=== PATIENT | female | born 1990 | race American Indian/Alaskan Native ===

== ENCOUNTER 2017-06-27 03:14 | Outpatient (CLI) | payer MEDICAID ==
[2017-06-27 03:41] VITALS: BP 117/68
[2017-06-27 04:12] LABS: Bacteria,Urine 1+ /HPF (Negative); Bilirubin,Urine NEG (Negative); Blood,Urine NEG (Negative); Ketones,Urine NEG (Negative); Leukocyte Esterase,Urine MOD (Negative); Mucus,Urine FEW /HPF; Nitrite,Urine NEG (Negative); Protein,Urine <15 mg/dL mg/dL (Negative); Urobilinogen,Urine < 2.0 mg/dL (<2.0)
[2017-06-27] MEDS ORDERED: LACTATED RINGERS 0 ML ONE (06:40)
[2017-06-27] MEDS ORDERED: LACTATED RINGERS 1,000 ML IV SCH (07:00)
== END 2017-06-27 06:50 | disposition home or self-care (01) ==
LOC: TRG 03:14
PROVIDERS: ATTEND Obstetrics & Gynecology
DX: Z34.93 Encounter for supervision of normal pregnancy, unspecified, third trimester (principal); Z3A.37 37 weeks gestation of pregnancy
CPT/HCPCS: 59025; 81001; J7120

== ENCOUNTER 2017-07-02 21:05 | Outpatient (CLI) | payer MEDICAID ==
[2017-07-02 21:32] VITALS: BP 111/74
--- NOTE | 2017-07-08 19:28 | Event Note ---
Date: 07/02/17 Pt. presented to L&D triage with complaint of contractions and vaginal discharge. She states she wants to make sure it is not her water. Pt. reports discharge is thick like mucous. She denies bleeding. She denies watery discharge. Pt. reports active movement. She reports irregular contractions on and off all day. On exam, pt. is well appearing. FHR tracing is reassuring. Irregular mild contractions noted. Negative pooling, negative nitrazine. Cervix thick, posterior, 2 cm. Unchanged cervical exam after several hours. Pt. was discharged home with labor precautions. Warning signs of late reviewed with pt.
== END 2017-07-02 22:28 | disposition home or self-care (01) ==
LOC: TRG 21:05
PROVIDERS: ATTEND Obstetrics & Gynecology
DX: O47.1 False labor at or after 37 completed weeks of gestation (principal); Z3A.38 38 weeks gestation of pregnancy

== ENCOUNTER 2017-07-09 23:24 | Outpatient (CLI) | payer MEDICAID ==
[2017-07-09 23:43] VITALS: BP 104/73
--- NOTE | 2017-07-10 21:44 | Progress Note ---
Assessment and Plan A: at 39 weeks gestation. False labor. P: Discharge home. Labor precautions discussed with patient. Late warning signs discussed. Subjective - Subjective Date of service: 07/09/17 Principal diagnosis: at 39 weeks gestation; false labor Interval history: Patient presents at 39 weeks gestation complaining of intermittent contractions all day. Patient reports: movement normal, contractions, no vaginal bleeding Objective - Vital Signs Vital Signs: Normal - Exam Abdomen: Present: normal appearance, soft. Absent: distention, tenderness, guarding Uterus: Present: fundal height above umbilicus FHR: category 1 Uterine Contraction Monitor Mode: External Cervical Dilatation: 2 Cervical Effacement Percentage: 50 station: -2 Uterine Contraction Frequency (min): Irregular - Labs Labs: Fern test negative, nitrazine negative
== END 2017-07-10 00:25 | disposition home or self-care (01) ==
LOC: TRG 23:24
PROVIDERS: ATTEND Obstetrics & Gynecology
DX: O47.1 False labor at or after 37 completed weeks of gestation (principal); Z3A.39 39 weeks gestation of pregnancy

== ENCOUNTER 2017-07-15 14:37 | Inpatient (IN) | payer MEDICAID ==
[2017-07-15] MEDS ORDERED: ePHEDrine SULFATE IV PRN ×2 (15:21→23:27)
[2017-07-15] MEDS ORDERED: SUBLIMAZE IV PRN (15:21)
[2017-07-15] MEDS ORDERED: BRETHINE SUB-Q PRN (15:21)
[2017-07-15] MEDS ORDERED: MINERAL OIL PO PRN (15:21)
[2017-07-15] MEDS ORDERED: XYLOCAINE 2% INFILTRATI ONE (15:21)
[2017-07-15] MEDS ORDERED: BRETHINE IVP PRN (15:21)
--- NOTE | 2017-07-15 15:25 | History and Physical Report ---
History of Present Illness Date of examination: 07/15/17 Date of admission: 07/15/17 Chief complaint: I'm having contractions History of present illness: 27 YO now 40.2 weeks presents to labor and delivery in active labor. GBS NEG. care at [facility] since 13.5 weeks. HX of Morbid obesity. 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 Family/Genetic History: none Social history: no significant social history - Obstetrical History Expected Date of Delivery: 07/13/17 Actual Gestation: 40 Week(s) 2 Day(s) : 2 Para: 0 Hx # Term Pregnancies: 0 Spontaneous Abortions: 1 Number of Living Children: 0 Medications and Allergies Allergies Allergy/AdvReac Type Severity Reaction Status Date / Time shellfish derived Allergy Anaphylaxis Verified 07/13/15 13:47 Home Medications Medication Instructions Recorded Confirmed Last Taken Type Dicyclomine [Bentyl] 20 mg PO QID #20 tablet 07/12/15 Unknown Rx Promethazine [Phenergan TAB] 25 mg PO Q6HR PRN #10 tab 07/12/15 Unknown Rx Ibuprofen [Motrin 600 MG tab] 600 mg PO Q8H PRN #14 tablet 07/13/15 Unknown Rx Review of Systems All systems: negative - Vital Signs Vital signs: Vital Signs Pulse BP 106 H 122/79 07/15/17 14:48 07/15/17 14:48 Temp Pulse Resp BP Pulse Ox 106 H 122/79 07/15/17 14:48 07/15/17 14:48 - Physical Exam Breasts: Positive: deferred Cardiovascular: Regular rate Lungs: Positive: Clear to auscultation Abdomen: Positive: soft Genitourinary (Female): Positive: normal external genitalia Vulva: both: normal Uterus: Positive: enlarged - Obstetrical FHR: category 2 Uterine Contraction Monitor Mode: External Cervical Dilatation: 4 Cervical Effacement Percentage: 80 station: -1 Uterine Contraction Pattern: Irregular Uterine Contraction Intensity: Mild Results Result Diagrams: 07/15/17 15:35 All other labs normal. Assessment and Plan A: Active labor at 40.2 weeks P; Expect Pitocin augmentation
[2017-07-15 16:00] LABS: Hematocrit 33.5 % (30.3-42.9); Hemoglobin 10.8 gm/dl (10.1-14.3); Mean Corpuscular HGB Conc 32 % (30-34); Mean Corpuscular Volume 71 fl (79-97); Platelet Count 162 K/mm3 (140-440); Red Cell Distribution Width 16.6 % (13.2-15.2); White Blood Count 9.6 K/mm3 (4.5-11.0)
[2017-07-15] MEDS ORDERED: PITOCin/NS 30 UNIT/500ML 30 UNITS/500 ML BAG IV SCH ×2 (16:00)
[2017-07-15] MEDS ORDERED: LACTATED RINGERS 1,000 ML IV SCH (16:00)
[2017-07-15] MEDS ORDERED: PITOCin/NS 20 UNIT/1000ML DRIP 20 UNITS/1,000 ML BAG IV SCH (16:00)
[2017-07-15 16:03] LABS: Mean Corpuscular Hemoglobin 23 pg (28-32)
--- NOTE | 2017-07-15 18:20 | Progress Note ---
Assessment and Plan Will confirm SROM with SSE. Continuous EFM. Plan for . Subjective - Subjective Date of service: 07/15/17 Principal diagnosis: at 40 weeks, 2 days gestation; SROM Interval history: Assumed care of patient. 27 year old at 40 weeks, 2 days gestation presented to L&D earlier today with complaint of leaking of fluid from vagina at 2:00 PM today; patient states her contractions began around the same time. Patient was started on Pitocin by previous provider for augmentation of labor. Patient reports active movement. She denies bleeding. She denies headache. Objective - Vital Signs Vital Signs: Vital Signs - 12hr 07/15/17 07/15/17 07/15/17 14:48 16:05 16:08 Temperature 98.2 F Pulse Rate 106 H 86 86 Respiratory 22 Rate Blood Pressure 122/79 108/63 108/63 - Exam Narrative Exam: Well appearing, alert, oriented, NAD. Afebrile. Vital signs stable. Abdomen soft , nontender, gravid. Irregular mild contractions palpable. Uterus palpates soft between contractions. No fluid seen on pad. SVE 4/90/-2/cephalic/posterior. Category 1 heart rate tracing. Abdomen: Present: normal appearance, soft. Absent: distention, tenderness Uterus: Present: fundal height above umbilicus FHR: category 1 Uterine Contraction Monitor Mode: External Cervical Dilatation: 4 Cervical Effacement Percentage: 90 station: -2 Uterine Contraction Pattern: Irregular Uterine Tone Measurement Phase: Resting (Uterus palpates soft) - Labs Labs: Abnormal Labs 07/15/17 15:35 MCV 71 L MCH 23 L RDW 16.6 H Laboratory Results - last 24 hr 07/15/17 07/15/17 15:35 15:35 WBC 9.6 RBC 4.70 Hgb 10.8 Hct 33.5 MCV 71 L MCH 23 L MCHC 32 RDW 16.6 H Plt Count 162 Blood Type B POSITIVE Antibody Screen Negative
--- NOTE | 2017-07-15 19:30 | Event Note ---
Date: 07/15/17 Fern test positive.
--- NOTE | 2017-07-15 21:20 | Event Note ---
Date: 07/15/17 Difficult to trace contractions and FHR with external monitors. Spoke with patient about need to place internal monitors to be able to trace contractions and FHR. Pitocin was temporarily turned off until internal monitors could be placed. Forebag ruptured with amnihook; large amount of clear fluid obtained. Cervix 4/90/-2/cephalic. IUPC and FSE placed without difficulty. Patient tolerated procedure well. FHR 150 with moderate variability. Contractions every 2-4 minutes, moderate to palpation. Uterus palpates soft between contractions. Pitocin still off for now. Patient resting in left lateral position and breathing well with contractions. Patient requests pain medication; will allow pt. to have pain medication. T 98.6.
[2017-07-15] MEDS ORDERED: fentaNYL-BUPIV 2 MCG/ML-0.125% 200 MCG/100 ML BAG EPIDURAL ONE (23:26)
[2017-07-15] MEDS ORDERED: NARCAN 2 MG/2 ML IV PRN (23:27)
--- NOTE | 2017-07-15 23:27 | Anesthesia Consultation ---
Anesthesia Consult and Med Hx Date of service: 07/15/17 - Airway Anesthetic Teeth Evaluation: Good ROM Head & Neck: Adequate Mental/Hyoid Distance: Adequate Mallampati Class: Class II Intubation Access Assessment: Good - Pulmonary Exam CTA: Yes - Cardiac Exam Cardiac Exam: No Murmur - Pre-Operative Health Status ASA Pre-Surgery Classification: ASA2 Proposed Anesthetic Plan: Epidural - Pulmonary Hx Asthma: No COPD: No Hx Pneumonia: No - Cardiovascular System Hx Hypertension: No - Central Nervous System Hx Seizures: No Hx Psychiatric Problems: No - Endocrine Hx Renal Disease: No Hx End Stage Renal Disease: No Hx Hypothyroidism: No Hx Hyperthyroidism: No - Hematic Hx Anemia: No Hx Sickle Cell Disease: No - Other Systems Hx Alcohol Use: No
[2017-07-15] MEDS ORDERED: BRETHINE ONE (23:29)
[2017-07-15] MEDS ORDERED: BRETHINE SUB-Q ONE (23:29)
[2017-07-15] MEDS ORDERED: fentaNYL-BUPIV 2 MCG/ML-0.125% 200 MCG/100 ML BAG EPIDURAL SCH (23:45)
--- NOTE | 2017-07-15 23:55 | Event Note ---
Date: 07/15/17 Called to see patient for prolonged deceleration. Patient is a labor status post SROM. On my arrival, 's heart rate had recovered presently in the 150s to 160s. It appears patient just had an epidural prior to the prolonged deceleration. She currently received ephedrine and IV bolus. An exam , she is presently 6-7 cm dilated. Plan at this point is to continue observation for now, consider restarting Pit if infant tracing remains reassuring.
[2017-07-16] MEDS ORDERED: ePHEDrine SULFATE IV PRN (00:35)
--- NOTE | 2017-07-16 00:49 | Event Note ---
Date: 07/16/17 Rechecked pt.; cervix is now 6-7/90/-2 to -1. FHR baseline 155 with minimal variability and contractions are every 2-3 minutes. Pt. is comfortable. Fluid is clear. Consulted with Dr. Fisher regarding patient and he states to recheck patient's cervix in 1 hour, continue to labor.
[2017-07-16] MEDS ORDERED: XYLOCAINE 2% INFILTRATI ONE (01:28)
--- NOTE | 2017-07-16 01:41 | Event Note ---
Date: 07/16/17 Cervix rechecked and no change noted. FHR 155-160 with minimal variability. Consulted Dr. Fisher at 01:29 regarding no change in cervical exam and FHR tracing with minimal variability. Dr. Fisher states he will come and evaluate patient. Temp. 98.9. Contractions every 2-4 minutes.
--- NOTE | 2017-07-16 02:04 | Event Note ---
Date: 07/16/17 Dr. Fisher came and evaluated patient and viewed FHR tracing; he states patient is 9 cm dilated and he states to allow labor to continue and attempt vaginal .
[2017-07-16] MEDS ORDERED: PEPCID IV ONE ×2 (03:02→03:04)
[2017-07-16] MEDS ORDERED: BICITRA ONE (03:02)
[2017-07-16] MEDS ORDERED: REGLAN ONE (03:02)
[2017-07-16] MEDS ORDERED: REGLAN IV ONE (03:04)
[2017-07-16] MEDS ORDERED: BICITRA PO ONE (03:04)
[2017-07-16] MEDS ORDERED: EMLA TP PRN (03:04)
[2017-07-16] MEDS ORDERED: NACL 0.9% IR ONE (03:45)
[2017-07-16] MEDS ORDERED: WATER FOR IRRIG STERILE IR ONE (03:45)
[2017-07-16] MEDS ORDERED: ANCEF/STERILE WATER 2 GM/20 ML 2 GM/20 ML SYRINGE IV NR (04:00)
[2017-07-16] MEDS ORDERED: ANCEF/NS 1 GM/50 ML 1 GM/50 ML BAG IV NR ×2 (04:00)
[2017-07-16] MEDS ORDERED: DIPRIVAN 10 MG/ML IV ONE (04:12)
[2017-07-16] MEDS ORDERED: MORPHINE ONE ×2 (04:19)
[2017-07-16] MEDS ORDERED: XYLOCAINE MPF 2% ONE ×4 (04:23)
[2017-07-16] MEDS ORDERED: TORADOL ONE (04:23)
--- NOTE | 2017-07-16 05:06 | Operative Report ---
Operative Report Operative Report: DATE: 07/16/2017 PREOPERATIVE DIAGNOSIS: 27-year-old at 40+2 weeks, Arrest of descent, Obesity class III POSTOP DIAGNOSIS: Above NAME OF PROCEDURE: Primary low transverse section SURGEON: SEBASTIAN ARROYO MD LENS CEMENTER: [] ANESTHESIA: Epidural EBL: 800 mL PATHOLOGY SPECIMEN: None URINE OUTPUT: 50 mL bloody FINDINGS: Male infant in cephalic presentation, transverse position, time of was 0 4:13 AM, weight was 8 lbs. 14 oz. or 4018 g, Apgars 8 and 9, normal uterus tubes and ovaries bilaterally, mobid obesity with significant subcutaneous fat DESCRIPTION OF PROCEDURE: After informed consent, patient was taken to the operating room where she was prepped and draped in a sterile fashion. Pfannestial incision was performed 2 cm above the pubic symphysis. This was then carried down to the underlying rectus fascia which was scored in the midline. The fascial incision was extended laterally with the use of Wallace scissors, anterior leaf was then grasped with [place]'s elevated dissected sharply and bluntly off the underlying rectus. In a similar fashion the inferior leaf was grasped elevated dissected sharply and bluntly off the underlying rectus. The rectus was in the midline and the peritoneal cavity was entered without difficulty. After good visualization of the bladder the peritoneal layer was extended up and down; bladder blade was placed in the patient's pelvic cavity, bladder flap was created without difficulty. A hysterotomy incision was then performed with clear amniotic fluid noted. in cephalic presentation was delivered without difficulty in the usual manner; cord was clamped cut and infant was handed over to waiting NICU staff. The placenta was then delivered intact, the uterus was then exteriorized cleared of all clots and debris. Her hysterotomy incision was then closed in a running locked fashion with 0 Vicryl on a CTX; using the same suture were able to imbricate the initial layer. The uterus was then returned to the patient's pelvic cavity; the peritoneal edges were grasped with hemostats and Ramandeep's; irrigation was used to clear the gutters of all clots and debris. Tisseel hemostatic agent was applied copiously over the hysterotomy incision. The bladder flap was then closed in a running fashion with 3-0 Vicryl. The peritoneal layer was closed in a running fashion with 3-0 Vicryl; the rectus was reapproximated with a single [id number] stitch. The fascia was then closed in a running fashion with 0 Vicryl; the subcutaneous layer was reapproximated with a single [id number] stitch. The skin was then closed in a subcuticular manner with 4-0 Monocryl. She tolerated the procedure well lap and instrument counts were correct 2, she did receive 3 grams of Ancef prior to the procedure. She is transferred to PACU in stable condition.
[2017-07-16] MEDS ORDERED: TYLENOL PO PRN (05:08)
[2017-07-16] MEDS ORDERED: ZOFRAN IV PRN (05:08)
[2017-07-16] MEDS ORDERED: TUCKS PAD TP PRN (05:08)
[2017-07-16] MEDS ORDERED: PHENERGAN PR PRN (05:08)
[2017-07-16] MEDS ORDERED: MILK OF MAGNESIA PO PRN (05:08)
[2017-07-16] MEDS ORDERED: ANUCORT-HC PR PRN (05:08)
[2017-07-16] MEDS ORDERED: LANSINOH TP PRN (05:08)
[2017-07-16] MEDS ORDERED: SENOKOT PO PRN (05:08)
[2017-07-16] MEDS ORDERED: NARCAN 0.4 MG/1 ML IV PRN (05:08)
[2017-07-16] MEDS ORDERED: MYLICON PO PRN (05:08)
[2017-07-16] MEDS: TORADOL IV PRN ×2 (05:33→13:19)
[2017-07-16] MEDS ORDERED: PITOCin/NS 20 UNIT/1000ML DRIP 20 UNITS/1,000 ML BAG IV SCH (06:00)
[2017-07-16] MEDS ORDERED: SODIUM CHLORIDE FLUSH SYRINGE 10 ML IV PRN (06:00)
[2017-07-16] MEDS ORDERED: D5LR 1,000 ML IV SCH (06:00)
[2017-07-16] MEDS: PRENATAL VITAMIN PO SCH (10:38)
[2017-07-16] MEDS: FEOSOL PO SCH (10:38)
[2017-07-16] MEDS: BENADRYL PO PRN ×2 (11:27→22:23)
[2017-07-16 17:36] LABS: Hematocrit 24.8 % (30.3-42.9); Hemoglobin 7.7 gm/dl (10.1-14.3)
[2017-07-16] MEDS: PERCOCET 5/325 PO PRN (18:15)
[2017-07-16] MEDS ORDERED: NACL 0.9% 500 ML 500 ML IV ONE ×2 (19:23→21:39)
[2017-07-16] MEDS: MOTRIN PO PRN (23:29)
[2017-07-17] MEDS: MOTRIN PO PRN ×2 (05:48→23:00)
[2017-07-17] MEDS ORDERED: BOOSTRIX IM ONE (06:00)
[2017-07-17] MEDS: PERCOCET 5/325 PO PRN ×3 (09:41→23:00)
[2017-07-17] MEDS: FEOSOL PO SCH (09:42)
[2017-07-17] MEDS: PRENATAL VITAMIN PO SCH (09:42)
--- NOTE | 2017-07-17 10:43 | Progress Note ---
Assessment and Plan A: day 1 S/P primary low transverse section. Bottlefeeding. Anemia. P: Advance diet. Encouraged ambulation. Continue iron supplements. Subjective - Subjective Date of service: 07/17/17 Principal diagnosis: day 1 S/P Primary Low Transverse Section Interval history: Doing well. Bottlefeeding. Voiding without difficulty and ambulating well. + flatus. Tolerating a regular diet without nausea or vomiting. Patient denies headache, chest pain, shortness of breath, cough, leg pain, or heavy vaginal bleeding. Patient states she wants to use Depo Provera as her contraceptive. She states she would like to be started on Depo Provera at her follow up office visit. Patient reports: appetite normal, voiding normally, pain well controlled, flatus , ambulating normally Justice: doing well Objective - Vital Signs Latest vital signs: Vital Signs Temp Pulse Resp BP 07/17/17 08:59 98.9 F 97 H 16 105/70 07/17/17 05:10 98.4 F 96 H 18 110/64 07/17/17 04:45 98.5 F 99 H 18 122/68 07/17/17 04:15 98.6 F 98 H 18 116/78 07/17/17 03:45 98.3 F 96 H 18 124/82 07/17/17 03:15 98.5 F 94 H 18 104/66 07/17/17 03:00 98.5 F 95 H 18 110/60 07/17/17 01:55 98.5 F 95 H 18 110/60 07/17/17 01:54 98.6 F 96 H 18 119/73 07/17/17 01:24 98.5 F 103 H 18 123/67 07/17/17 00:54 98.3 F 98 H 18 110/76 07/17/17 00:25 98.0 F 101 H 20 114/80 07/17/17 00:09 98.6 F 109 H 18 124/71 07/16/17 23:29 18 07/16/17 22:23 18 07/16/17 21:10 98.1 F 109 H 20 112/67 07/16/17 16:00 98.2 F 100 H 20 118/85 07/16/17 12:00 98.1 F 96 H 18 102/55 Intake and Output 07/16/17 07/17/17 07/17/17 22:59 06:59 14:59 Intake Total 240 860 480 Output Total 1000 800 Balance -760 60 480 Intake: Oral 240 360 480 Blood Product 500 Leukoreduced Red Blood 250 Cells Unit [id number] Leukoreduced Red Blood 250 Cells Unit [id number] Output: Urine 1000 800 Indwelling Catheter 600 Void 400 800 Other: Total, Intake Amount 240 120 480 Total, Output Amount 400 500 # Voids Void 1 1 1 - Exam Breasts: Present: deferred Cardiovascular: Present: Regular rate, No murmurs Lungs: Present: Clear to auscultation Abdomen: Present: normal appearance, soft, normal bowel sounds. Absent: distention, tenderness, guarding Uterus: Present: normal, firm, fundal height below umbilicus. Absent: tenderness Extremities: Present: normal. Absent: edema Incision: Present: dry, intact Comments: Dressing clean, dry, and intact. - Labs Labs: Abnormal lab results 07/15/17 07/16/17 Range/Units 15:35 16:59 Hgb 7.7 L D (10.1-14.3) gm/dl Hct 24.8 L D (30.3-42.9) % Crossmatch See Detail
[2017-07-17 11:10] LABS: Hematocrit 24.1 % (30.3-42.9); Hemoglobin 7.7 gm/dl (10.1-14.3)
[2017-07-18] MEDS: MOTRIN PO PRN ×3 (05:16→17:18)
[2017-07-18] MEDS: PERCOCET 5/325 PO PRN ×3 (05:16→17:19)
[2017-07-18 08:16] LABS: Hematocrit 23.7 % (30.3-42.9); Hemoglobin 7.4 gm/dl (10.1-14.3)
--- NOTE | 2017-07-18 09:21 | Progress Note ---
Assessment and Plan A: PPD #2 -stable P: Discharge home today Subjective - Subjective Date of service: 07/18/17 Principal diagnosis: day 2 S/P Primary Low Transverse Section Interval history: 27 YO now 40.2 weeks presents to labor and delivery in active labor. GBS NEG. care at [facility] since 13.5 weeks. HX of Morbid obesity. Co managed by [facility] Patient reports: appetite normal Joanna: doing well Objective - Vital Signs Latest vital signs: Vital Signs Temp Pulse Resp BP 07/18/17 08:15 98.8 F 76 20 102/50 07/18/17 05:16 18 07/17/17 23:25 98.6 F 73 16 102/67 07/17/17 23:00 18 07/17/17 16:52 18 07/17/17 16:15 98.8 F 100 H 18 113/78 Intake and Output 07/17/17 07/18/17 07/18/17 22:59 06:59 14:59 Intake Total 1210 Balance 1210 Intake: Oral 490 Intake, Free Water 720 Other: Total, Intake Amount 240 - Exam Breasts: Present: deferred, mass Lungs: Present: Clear to auscultation Abdomen: Present: soft Vulva: both: normal Uterus: Present: fundal height below umbilicus Extremities: Present: normal Deep Tendon Reflex Grade: Normal +2 - Labs Labs: Abnormal lab results 07/17/17 07/18/17 Range/Units 10:35 08:00 Hgb 7.7 L 7.4 L (10.1-14.3) gm/dl Hct 24.1 L 23.7 L (30.3-42.9) %
--- NOTE | 2017-07-18 09:23 | Discharge Summary ---
Providers - Providers Date of Admission: 07/15/17 14:38 Date of discharge: 07/18/17 Attending physician: LLOYD BECERRA MD Primary care physician: LLOYD BECERRA MD Hospitalization Reason for admission: active labor Delivery: Procedure: primary low transverse Discharge diagnosis: IUP at term delivered [place] baby: male Condition at discharge: Good Disposition: DC-01 TO HOME OR SELFCARE Plan - Discharge Medications Prescriptions: Ibuprofen [Motrin 600 MG tab] 600 mg PO Q8H PRN #30 tablet PRN Reason: Pain Multivitamin with Iron [Multivitamins with Iron] 1 each PO DAILY #30 tablet oxyCODONE /ACETAMINOPHEN [Percocet 5/325] 1 tab PO Q6HR PRN #30 tablet PRN Reason: Pain - Provider Discharge Summary Activity: routine, no sex for 6 weeks, no strenuous exercise Diet: routine Instructions: routine Additional instructions: [] Smoking cessation referral if applicable(refer to patient education folder for contact #) [] Refer to [facility]'s [facility] Booklet Call your doctor immediately for: * Fever > 100.5 * Heavy vaginal bleeding ( >1 pad per hour) * Severe persistent headache * Shortness of breath * Reddened, hot, painful area to leg or breast * Drainage or odor from incision. * Keep incision clean and dry at all times and follow doctor's instructions regarding bathing/showering - Follow up plan Follow up: [facility] [Provider Group] - 14 Days
[2017-07-18] MEDS: FEOSOL PO SCH (10:33)
[2017-07-18] MEDS: PRENATAL VITAMIN PO SCH (10:33)
[2017-07-18 18:05] VITALS: BP 104/64
== END 2017-07-18 18:10 | disposition home or self-care (01) | DRG 765 ==
LOC: TRG 14:37 → LD 14:38 → OB 07-16 07:08
PROVIDERS: ADMIT Obstetrics & Gynecology; ATTEND Obstetrics & Gynecology
PROC: 10D00Z1 Extraction of Products of Conception, Low, Open Approach (ICD-10-PCS; principal; 2017-07-16)
PROC: 30233N1 Transfusion of Nonautologous Red Blood Cells into Peripheral Vein, Percutaneous Approach (ICD-10-PCS; 2017-07-17)
DX: O99.214 Obesity complicating childbirth (principal); R71.0 Precipitous drop in hematocrit; Z68.41 Body mass index [BMI] 40.0-44.9, adult; O62.2 Other uterine inertia; E66.01 Morbid (severe) obesity due to excess calories; O99.03 Anemia complicating the puerperium; Z3A.40 40 weeks gestation of pregnancy; Z37.0 Single live birth; Z91.013 Allergy to seafood
CPT/HCPCS: 36415; 85014; 85018; 85027; 86592; 86850; 86900; 86901; 86920; 90471; 90715; 99211; A6250; C9250; G0463; J0690; J1885; J2270; J2590; J2704; J2765; J3010; J3105; J7040; J7120; J7121; P9016

== ENCOUNTER 2017-07-22 01:45 | Emergency (ER) | payer MEDICAID ==
[2017-07-22 02:44] LABS: Basophils % (Auto) 0.3 % (0.0-1.8); Eosinophils % (Auto) 1.7 % (0.0-4.3); Hematocrit 28.4 % (30.3-42.9); Mean Corpuscular HGB Conc 32 % (30-34); Mean Corpuscular Hemoglobin 24 pg (28-32); Mean Corpuscular Volume 74 fl (79-97); Platelet Count 301 K/mm3 (140-440); Red Blood Count 3.84 M/mm3 (3.65-5.03); Red Cell Distribution Width 18.1 % (13.2-15.2); White Blood Count 11.4 K/mm3 (4.5-11.0)
[2017-07-22 02:51] LABS: Bacteria,Urine 1+ /HPF (Negative); Bilirubin,Urine NEG (Negative); Blood,Urine LG (Negative); Ketones,Urine NEG (Negative); Leukocyte Esterase,Urine LG (Negative); Mucus,Urine 1+ /HPF; Nitrite,Urine NEG (Negative)
[2017-07-22 02:52] LABS: BUN/Creatinine Ratio 13.33; Blood Urea Nitrogen 8 mg/dL (7-17); Calcium 8.9 mg/dL (8.4-10.2); Carbon Dioxide 22 mmol/L (22-30); Glucose 95 mg/dL (65-100)
[2017-07-22 02:53] LABS: RBC,Urine > 182.0 /HPF (0.0-6.0)
[2017-07-22 02:57] LABS: Anion Gap 17 mmol/L; Chloride 105.1 mmol/L (98-107); Potassium 4.2 mmol/L (3.6-5.0); Sodium 140 mmol/L (137-145)
--- NOTE | 2017-07-22 06:44 | Emergency Department Report ---
HPI - General Chief Complaint: Fever Time Seen by Provider: 07/22/17 06:33 - HPI HPI: Room 2 The patient is a 27-year-old female presenting with a chief complaint of fever and chills. Patient is status post 07/16/[address] Fisher. The patient states she awakened this evening at approximately 00:30 with chills and a fever of 100.6F. The patient states she contacted the turkey boner GAS INSPECTOR (believes was Dr. Stewart) and he in turn instructed her to come to the ED. Patient admits to dysuria since 21:30 but denies hematuria. Patient admits to slight diarrhea last night. Patient states she has had her same post surgical site pain since the procedure and it has not increased Location: [see above] Duration: [see above] Quality: Chills, fever Severity: 100.6F Modifying factors: [see above] Context: [see above] Mode of transportation: Unknown ED Past Medical Hx - Past Medical History Previous Medical History?: Yes Additional medical history: Obesity. Tietze syndrome - Surgical History Past Surgical History?: Yes Additional Surgical History: C-Sec 07/16/17 - Family History Family history: no significant - Social History Smoking Status: Never Smoker Substance Use Type: None - Medications Home Medications: Home Medications Medication Instructions Recorded Confirmed Last Taken Type Dicyclomine [Bentyl] 20 mg PO QID #20 tablet 07/12/15 07/16/17 Unknown Rx Promethazine [Phenergan TAB] 25 mg PO Q6HR PRN #10 tab 07/12/15 07/16/17 Unknown Rx Ibuprofen [Motrin 600 MG tab] 600 mg PO Q8H PRN #14 tablet 07/13/15 07/16/17 Unknown Rx Ibuprofen [Motrin 600 MG tab] 600 mg PO Q8H PRN #30 tablet 07/16/17 Unknown Rx Multivitamin with Iron 1 each PO DAILY #30 tablet 07/16/17 Unknown Rx [Multivitamins with Iron] oxyCODONE /ACETAMINOPHEN [Percocet 1 tab PO Q6HR PRN #30 tablet 07/16/17 Unknown Rx 5/325] Cephalexin [Keflex] 500 mg PO QID #40 capsule 07/22/17 Unknown Rx ED Review of Systems ROS: Stated complaint: FEVER Other details as noted in HPI Comment: All other systems reviewed and negative Constitutional: chills, fever Eyes: denies: eye pain, eye discharge, vision change ENT: denies: ear pain, throat pain Respiratory: denies: cough, shortness of breath, wheezing Cardiovascular: denies: chest pain, palpitations Endocrine: no symptoms reported Gastrointestinal: abdominal pain, diarrhea Genitourinary: dysuria. denies: hematuria Musculoskeletal: denies: back pain, joint swelling, arthralgia Skin: denies: rash, lesions Neurological: denies: headache, weakness, paresthesias Psychiatric: denies: anxiety, depression Hematological/Lymphatic: denies: easy bleeding, easy bruising Physical Exam - Physical Exam Vital Signs: Vital Signs 07/22/17 01:53 Temperature 99.3 F Pulse Rate 111 H Respiratory 20 Rate Blood Pressure 149/96 [Right] O2 Sat by Pulse 100 Oximetry Physical Exam: GENERAL: The patient is well-developed well-nourished female sitting on stretcher not appearing to be in acute distress. [] HEENT: Normocephalic. Atraumatic. Extraocular motions are intact. Patient has moist mucous membranes. NECK: Supple. Trachea midline CHEST/LUNGS: Clear to auscultation. There is no respiratory distress noted. HEART/CARDIOVASCULAR: Regular. There is no tachycardia. There is no gallop rub or murmur. ABDOMEN: Abdomen is soft with appropriate postoperative tenderness. surgical site clean and dry and intact. Patient has normal bowel sounds. There is no abdominal distention. SKIN: There is no rash. There is no edema. There is no diaphoresis. NEURO: The patient is awake, alert, and oriented. The patient is cooperative. The patient has normal speech MUSCULOSKELETAL: There is no evidence of acute injury. ED Course Vital Signs 07/22/17 01:53 Temperature 99.3 F Pulse Rate 111 H Respiratory 20 Rate Blood Pressure 149/96 [Right] O2 Sat by Pulse 100 Oximetry - Consultations Consultation #1: 07/22/17 06:44 GAS INSPECTOR called 07/22/17 07:[address] Stewart-recommends sending patient home with [facility] ED Medical Decision Making - Lab Data Result diagrams: 07/22/17 02:15 07/22/17 02:15 Laboratory Tests 07/22/17 07/22/17 07/22/17 02:15 02:15 02:15 WBC 11.4 H RBC 3.84 Hgb 9.0 L Hct 28.4 L MCV 74 L MCH 24 L MCHC 32 RDW 18.1 H Plt Count 301 Lymph % (Auto) 15.1 [place] % (Auto) 9.6 H Eos % (Auto) 1.7 Baso % (Auto) 0.3 Lymph # 1.7 [place] # 1.1 H Eos # 0.2 Baso # 0.0 Seg Neutrophils % 73.3 H Seg Neutrophils # 8.4 H VBG pH Sodium 140 Potassium 4.2 Chloride 105.1 Carbon Dioxide 22 Anion Gap 17 BUN 8 Creatinine 0.6 L Estimated GFR > 60 BUN/Creatinine Ratio 13.33 Glucose 95 Lactic Acid 1.00 Calcium 8.9 Urine Color Urine Turbidity Urine pH Ur Specific [place] Urine Protein Urine Glucose (UA) Urine Ketones Urine Blood Urine Nitrite Urine Bilirubin Urine Urobilinogen Ur Leukocyte Esterase Urine WBC (Auto) Urine RBC (Auto) U Epithel Cells (Auto) Urine Bacteria (Auto) Calcium Oxalate Crystal Urine Mucus 07/22/17 07/22/17 02:15 02:31 WBC RBC Hgb Hct MCV MCH MCHC RDW Plt Count Lymph % (Auto) [place] % (Auto) Eos % (Auto) Baso % (Auto) Lymph # [place] # Eos # Baso # Seg Neutrophils % Seg Neutrophils # VBG pH 7.384 Sodium Potassium Chloride Carbon Dioxide Anion Gap BUN Creatinine Estimated GFR BUN/Creatinine Ratio Glucose Lactic Acid Calcium Urine Color Yellow Urine Turbidity Slightly-cloudy Urine pH 6.0 Ur Specific [place] 1.026 Urine Protein 100 mg/dl Urine Glucose (UA) Neg Urine Ketones Neg Urine Blood Lg Urine Nitrite Neg Urine Bilirubin Neg Urine Urobilinogen 2.0 Ur Leukocyte Esterase Lg Urine WBC (Auto) 131.0 H Urine RBC (Auto) > 182.0 U Epithel Cells (Auto) 1.0 Urine Bacteria (Auto) 1+ Calcium Oxalate Crystal 2+ Urine Mucus 1+ - Differential Diagnosis cystitis, pyelonephritis, postop infection Critical care attestation.: If time is entered above; I have spent that time in minutes in the direct care of this critically ill patient, excluding procedure time. ED Disposition Clinical Impression: UTI (urinary tract infection), Fever Disposition: TO HOME OR SELFCARE Is pt being admited?: No Does the pt Need Aspirin: No Condition: Stable Instructions: Urinary Tract Infection in Women (ED) Additional Instructions: Return to the emergency department immediately should you develop worsening symptoms, fever, inability to tolerate food or liquid or any other concerns. Prescriptions: Cephalexin [Keflex] 500 mg PO QID #40 capsule Referrals: PRIMARY CARE, [Primary Care Provider] - 3-5 Days Time of Disposition: 07:08
[2017-07-22] MEDS ORDERED: XYLOCAINE 1% MPF 5 mL INFILTRATI ONE (06:45)
[2017-07-22] MEDS ORDERED: ROCEPHIN IM ONE (06:45)
[2017-07-22 07:54] VITALS: BP 120/86
== END 2017-07-22 08:00 | disposition home or self-care (01) ==
LOC: ED 01:45
DX: N39.0 Urinary tract infection, site not specified (principal); M94.0 Chondrocostal junction syndrome [Tietze]; E66.9 Obesity, unspecified
CPT/HCPCS: 36415; 80048; 81001; 82140; 82805; 85025; 87086; 96372; 99283; J0696